=== PATIENT | female | born 1975 | race Caucasian/White ===

== ENCOUNTER 2021-01-08 20:31 | Emergency (ER) | payer OTHER ==
[~2021-01-08] VITALS: Ht 162.6 cm; Wt 43.3 kg
[2021-01-08 21:04] VITALS: BP 132/88
--- NOTE | 2021-01-08 21:04 | NUR ---
Patient discharged to home in stable condition. Written and verbal after care instructions given. Patient verbalizes understanding of instructions. Stressed follow up or return to ER for worsening s/s. Patient ambulates with steady gait, V/S stable, and left with all personal belongings.
== END 2021-01-08 21:04 | disposition home or self-care (01) ==
LOC: ER 20:33
DX: Z03.89 Encounter for observation for other suspected diseases and conditions ruled out (principal); F17.210 Nicotine dependence, cigarettes, uncomplicated; Z82.3 Family history of stroke; J45.909 Unspecified asthma, uncomplicated; F15.10 Other stimulant abuse, uncomplicated
CPT/HCPCS: A4663